=== PATIENT | male | born 1950 | race Caucasian/White ===

== ENCOUNTER 2020-10-28 10:29 | Outpatient (CLI) | payer MEDICARE, OTHER, SELFPAY ==
--- NOTE | ~2020-10-28 | US_ITS ---
EXAMINATION: US renal BI DATE: 10/28/2020 10:55 INDICATION: Chronic kidney disease stage II. TECHNIQUE: Multiple ultrasound grayscale images of the kidneys were obtained. COMPARISON: CT abdomen and pelvis 08/08/2018 FINDINGS: The right kidney is absent. The left kidney measures 13.3 x 5.9 x 7.0 cm. The left kidney demonstrate s normal parenchymal echogenicity. There is a 2.6 cm cyst of the left kidney. There is no hydronephro sis. The bladder is normal. IMPRESSION: 1. Normal left kidney size. No hydronephrosis. 2. Right nephrectomy. Reviewed, dictated and finalized at location A.
== END 2020-10-28 10:30 | disposition home or self-care (01) ==
PROVIDERS: PCP Internal Medicine; Visit Provider Internal Medicine
DX: N18.2 Chronic kidney disease, stage 2 (mild) (principal); R79.89 Other specified abnormal findings of blood chemistry; Z90.5 Acquired absence of kidney
CPT/HCPCS: 76775

== ENCOUNTER 2024-12-17 10:23 | Outpatient (CLI) | payer MEDICARE, OTHER, SELFPAY ==
--- NOTE | ~2024-12-17 | XR_ITS ---
XR ankle RT min 3V, XR foot RT min 3V 12/17/2024 11:02 (accession [id number]), 12/17/2024 11:01 (accession [id number]) Indication: Bruising and swelling of the calcaneus. Procedure: 5 views of the right ankle and 4 views right foot Comparison: No prior studies for comparison. Findings: There is a comminuted mildly displaced intra-articular fracture of the calcaneus extending to the subtalar joint. No talar fracture is identified. Old fracture of the medial. Lisfranc joint in tact. Impression: 1: Comminuted displaced intra-articular fracture of the calcaneus extending to the subtalar joint. Reviewed, dictated and finalized at location A. Impression: 1: Comminuted displaced intra-articular fracture of the calcaneus extending to the subtalar joint. Impression: 1: Comminuted displaced intra-articular fracture of the calcaneus extending to the subtalar joint.
--- OUTSIDE RECORDS SUMMARY | 2024-12-17 11:27 | XMS_ITS | Clinical Summary ---
Author Organization [facility] Address [address] [place] [address] Care Team Providers Care Load Mixer Name Role Phone Tashi Stout MD Primary Care Provider [phone] Source Comments [facility],non-owned Affiliates and Associated Physician Practices is amultiple site organization consisting of ambulatory clinics and hospital sitesin [place], [place], [place] and [place]. This disclosure is being madepursuant to the Care Everywhere program and may not contain all information available regarding this patient. Last updated 18.[facility] Allergies No known active allergies Medications * Be aware that medications may not be up to date on this document. Alwaysverify current medications with the patient. 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 Gender Identity Not on file Sexual Orientation Not on file Last Filed Vital Signs Vital Sign Reading Time Taken Comments Blood Pressure 158/90 08/10/2018 2:58 PM [employer]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 Pulse 62 08/10/2018 2:41 PM [employer]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 Temperature 36.5 C (97.7 F) 08/10/2018 2:41 PM [employer]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 Respiratory Rate 16 08/10/2018 2:41 PM VAR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 Oxygen Saturation 97% 08/10/2018 2:41 PM VAR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 Inhaled Oxygen Concentration - - Weight 97.5 kg (215 lb) 08/10/2018 2:41 PM [employer]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 Height 182.9 cm (6') 08/10/2018 2:41 PM VAR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 Body Mass Index 29.16 08/10/2018 2:41 PM VAR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 Plan of Treatment Health Maintenance Due Date Last Done Comments COLOGUARD (AGES 45-75) - COL ON CA SCREENING 1951 COLON MONITORING 1951 COLONOSCOPY - COLON CA SCREENING 1951 CT COLONOGRAPHY - COLON CA SCREENING 1950 Colorectal Cancer Screening 1950 FIT - COLON CA SCREENING 1950 FLEX SIG - COLON CA SCREENING 1950 LIPID TESTING 1950 HEPATITIS C SCREENING 12/23/1969 DTAP/TDAP/TD VACCINES (1 - Tdap) 12/27/1970 PNEUMOCOCCAL VACCINE 50+ (1 of 1 - PCV) 12/27/2001 ZOSTER VACCINE (1 of 2) 12/27/2001 SCREENING FOR DIABETES 08/10/2018 COVID-19 VACCINE ( - 2023-2 5 season) 2024 DEPRESSION SCREENING 07/15/2024 INFLUENZA VACCINE (Season Ended) 2025 Respiratory Syncytial Virus (RSV) Vaccine Pt: or over 60 yrs (1 - 1-dose 75+ series) 12/27/2026 HEPATITIS B VACCINE Aged Out No longe r eligible based on patient's age to complete this topic HIB VACCINE Aged Out No longer eligi ble based on patient's age to complete this topic HPV VACCINE Aged Out No longer eligi ble based on patient's age to complete this topic MENINGOCOCCAL (Group B) VACC INE SHARED DECISION-MAKING Aged Out No longer eligibl e based on patient's age to complete this topic MENINGOCOCCAL GROUPS A/C/Y/W VACCINE Aged Out No longer eligible b ased on patient's age to complete this topic Insurance MEDICARE MEDICARE Care Teams Load Mixer Relationship Specialty Start Date End Date Tashi Stout MD [address] [place] [id number] PCP - General Family Medicine 08/10/18
== END 2024-12-17 10:24 | disposition home or self-care (01) ==
PROVIDERS: PCP Internal Medicine; Visit Provider Internal Medicine
DX: S92.061A Displaced intraarticular fracture of right calcaneus, initial encounter for closed fracture (principal); W13.2XXA Fall from, out of or through roof, initial encounter; Z87.81 Personal history of (healed) traumatic fracture
CPT/HCPCS: 73610; 73630